=== PATIENT | female | born 1965 | race Caucasian/White ===

== ENCOUNTER 2017-06-18 18:01 | Emergency (ER) | payer OTHER ==
--- NOTE | ~2017-06-18 | EKG ---
PATIENT: JEB RODRIGUEZ UNIT #: [id number] Ventricular Rate: 75 BPM Atrial Rate: 75 BPM P-R Interval: 128 ms QRS Duration: 72 ms Q-T Interval: 398 ms QTC Calculation(Bezet): 444 ms P [place]: 9 degrees Calculated R [place]: -3 degrees Calculated T [place]: 18 degrees Diagnosis Line: Normal sinus rhythm Diagnosis Line: Inferior infarct , age undetermined Diagnosis Line: Abnormal ECG Diagnosis Line: No previous ECGs available Diagnosis Line: Confirmed by VIANNEY SERRANO MD ([id number]) on Diagnosis Line: 06/19/2017 7:35:07 AM INTERPRETING MD: MAGGIE SERRATO
--- NOTE | ~2017-06-18 | CR72 ---
[facility] A Service of [facility] RADIOLOGY TEXT RESULTS PATIENT: JEB RODRIGUEZ LOCATION: SED : 63 UNIT #: [id number] AGE: [address]: Liam Viramontes MD SEX: F ORDER DR: [id number] [address] [address] [id number] E MR#: [id number] Acc #: [id number] NAME: JEB RODRIGUEZ : 1965 SEX: F STUDY DATE/TIME: 06/18/2017 18:21 UNIT: SED ROOM: STUDY DESCRIPTION: CR Chest Single View Portable Attending Physician: Laim Viramontes M.D. Ordering Physician: Jan Salcido M.D. Primary Care Physician: Primary Care Physician No MEDICAL IMAGING REPORT This report is preliminary unless electronic signature is present. EXAM Portable chest HISTORY Chest pain today. FINDINGS A single AP portable view of the chest shows both lungs to be clear. The heart is normal in size. The mediastinal contour is normal. No significant bone abnormalities are seen. IMPRESSION Normal portable chest. Dictated by... Kanu Duncan M.D. THIS IS AN ELECTRONICALLY VERIFIED REPORT Kanu Duncan M.D. at 06/19/2017 11:42 PM DFL/rosalva TD: 06/19/2017 02:08 JOB #: [id number] MEDICAL IMAGING REPORT Page 1 of 1
[~2017-06-18 18:01] MED LIST: BACTRIM DS TABL1 TA1 PO; KEFLEX500 M1 PO; KEFLEX500 MG PO; LORTAB 7.51 TAB 7.5/ PO; NO MEDICATIONS
[2017-06-18] MEDS ORDERED: ALLERGY MED (18:12)
[2017-06-18] MEDS ORDERED: BUSPAR5 M1 (18:12)
[2017-06-18 18:27] LABS: BASOPHIL# 0.1 X10e3 (0-0.3); BASOPHIL% 0.8 % (0-2.5); EOSINOPHIL# 0.6 X10e3 (0-0.7); HEMATOCRIT 40.3 % (35.0-45.0); HEMOGLOBIN 13.9 gm/dL (12.0-16.0); LYMPHOCYTE# 1.9 X10e3 (1.0-3.5); LYMPHOCYTE% 25.1 % (17.0-45.0); MEAN CELL VOLUME 85.5 FL (83-96); MEAN CORPUSCULAR HEMOGLOBIN 29.4 PG (28-34); MEAN CORPUSCULAR HGB CONC 34.4 g/dL (30-36); MEAN PLATELET VOLUME 7.5 FL (6.5-11.5); MONOCYTE# 0.7 X10e3 (0-1.0); MONOCYTE% 8.5 % (3.0-12.0); NEUTROPHIL# 4.5 X10e3 (1.5-7.1); NEUTROPHIL% 57.6 % (40-75); PLATELET COUNT 310 X10e3 (140-420); RED BLOOD COUNT 4.71 X10e (3.90-5.30); RED CELL DISTRIBUTION WIDTH 13.5 % (11.0-15.5); WHITE BLOOD COUNT 7.7 X10e3 (4.0-10.5)
[2017-06-18 18:34] LABS: DIFF IND NO
[2017-06-18 18:37] LABS: POC - CKMB <1.0 ng/mL (0.0-7.9); POC - TROPONIN <0.05 ng/mL (<=0.05)
[2017-06-18 18:45] LABS: ALBUMIN SERUM 4.3 g/dL (3.5-5.0); BILIRUBIN, DIRECT 0.1 mg/dL (0.0-0.2); BILIRUBIN,INDIRECT 0.7 mg/dL (0.0-0.9); BILIRUBIN,TOTAL 0.8 mg/dL (0.2-2.0); BUN/CREATININE RATIO 17.14; CALCIUM SERUM 8.9 mg/dL (8.4-10.2); CREATININE SERUM 0.7 mg/dL (0.6-1.4); GLOM FILT RATE Estimated 98.9 mL/min (>60); POTASSIUM 3.6 mmol/L (3.5-5.1); PROTEIN TOTAL SERUM 7.9 g/dL (6.0-8.3)
[2017-06-18 20:29] LABS: POC - CKMB <1.0 ng/mL (0.0-7.9); POC - TROPONIN <0.05 ng/mL (<=0.05)
[2017-07-07] MEDS ORDERED: INHALER (11:40)
[2017-07-07] MEDS ORDERED: ZYRTEC10 M1 PO (11:40)
== END 2017-06-18 21:06 | disposition home or self-care (01) ==
LOC: SED 18:01
PROVIDERS: Emergency Medicine
DX: R07.89 Other chest pain (principal); R10.13 Epigastric pain; F41.9 Anxiety disorder, unspecified
CPT/HCPCS: 36415; 71010; 80048; 80076; 82553; 83690; 84484; 85025; 86677; 93005; 96374; 99285; J2405

== ENCOUNTER → 2017-06-26 | Outpatient (CLI) | payer OTHER ==
[~2017-06-26] MED LIST changes: +ALLERGY MED; +BUSPAR5 M1; +INHALER; +ZYRTEC10 M1 PO
--- NOTE | ~2017-06-26 | US6 ---
[facility] A Service of [facility] RADIOLOGY TEXT RESULTS PATIENT: JEB RODRIGUEZ LOCATION: [facility] : 63 UNIT #: [id number] AGE: [address]: Devika Berrios APRN SEX: F ORDER DR: [id number] [address] [address] [id number] O MR#: [id number] Acc #: [id number] NAME: JEB RODRIGUEZ : 1965 SEX: F STUDY DATE/TIME: 06/26/2017 7:59 UNIT: SG ROOM: STUDY DESCRIPTION: US Abdominal Limited Attending Physician: Devika Berrios A.P.R.N. Referring Physician: Devika Berrios A.P.R.N. Ordering Physician: Devika Berrios A.P.R.N. Primary Care Physician: Devika Berrios A.P.R.N. MEDICAL IMAGING REPORT This report is preliminary unless electronic signature is present. EXAM Right upper quadrant ultrasound 06/26/2017 INDICATIONS Intermittent right upper quadrant pain for a few weeks and nausea that began 3 days ago. TECHNIQUE Sonographic imaging right upper quadrant was performed. No comparisons FINDINGS The pancreas was mostly obscured by bowel gas and not well visualized or assessed. The liver demonstrates fatty infiltration and measures 18 cm long axis. To the extent visualized, there is no focal liver mass or ascites or intrahepatic ductal dilatation. The right kidney is nonobstructed and measures 10.8 cm long axis. There is reverberation artifact versus a small amount of sludge within an otherwise unremarkable gallbladder. No shadowing stones. No sonographic Denise's sign was described by the technologist. Extrahepatic common bile duct measures 2-3 mm. IMPRESSION 1. Fatty infiltration of the liver. 2. Reverberation artifact versus a small amount of sludge within an otherwise unremarkable gallbladder. 3. Otherwise negative. Dictated by... Jan Enrique M.D. [facility] A Service [facility] RADIOLOGY TEXT RESULTS PATIENT: JEB RODRIGUEZ LOCATION: [facility] : 63 UNIT #: [id number] AGE: [address]: Devika Berrios APRN SEX: F ORDER DR: THIS IS AN ELECTRONICALLY VERIFIED REPORT Jan Enrique M.D. at 06/26/2017 4:09 PM Max TD: 06/26/2017 12:43 JOB #: [id number] MEDICAL IMAGING REPORT Page 1 of 1
== END | disposition home or self-care (01) ==
LOC: SGUS 06-25 15:30
DX: R10.13 Epigastric pain (principal); K76.0 Fatty (change of) liver, not elsewhere classified
CPT/HCPCS: 76705

== ENCOUNTER → 2017-07-03 | Outpatient (CLI) | payer OTHER ==
--- NOTE | ~2017-07-03 | NM22 ---
[facility] A Service of [facility] RADIOLOGY TEXT RESULTS PATIENT: JEB RODRIGUEZ LOCATION: [facility] : 63 UNIT #: [id number] AGE: [address]: Devika Berrios APRN SEX: F ORDER DR: [id number] [facility] [address] [place], [place] [address] [id number] O MR#: [id number] Acc #: [id number] NAME: JEB RODRIGUEZ : 1965 SEX: F STUDY DATE/TIME: 07/03/2017 10:57 UNIT: [facility] ROOM: STUDY DESCRIPTION: GA Hepatobiliary W GB Pharm Attending Physician: Devika Berrios A.P.R.N. Referring Physician: Devika Berrios A.P.R.N. Ordering Physician: Devika Berrios A.P.R.N. Primary Care Physician: Devika Berrios A.P.R.N. MEDICAL IMAGING REPORT This report is preliminary unless electronic signature is present EXAM HIDA scan with Kinevac/CCK, 07/03/2017. HISTORY Epigastric abdominal pain and abnormally elevated liver enzymes, right upper quadrant abdominal pain, symptoms for 3 weeks, nausea, vomiting, loose stools, early satiety, appetite loss. FINDINGS The patient received an intravenous injection of 5.14 mCi of technetium 99m tagged Choletec for hepatobiliary imaging. One hour following the injection of the radiopharmaceutical, the patient received an intravenous injection of 2 mcg of Kinevac. There was homogeneous distribution of the radiotracer throughout the liver. Gallbladder activity was seen by 30 minutes postinjection of the radiopharmaceutical. Following Kinevac injection, the gallbladder ejection fraction was 67.4% (normal is greater than 30%). IMPRESSION Normal HIDA scan with gallbladder ejection fraction of 67.4%. Dictated by... Jorden Loredo M.D. THIS IS AN ELECTRONICALLY VERIFIED REPORT Jorden Loredo M.D. at 07/03/2017 5:55 PM KRT/tmw TD: 07/03/2017 16:33 JOB #: [id number] [facility] A Service of [facility] RADIOLOGY TEXT RESULTS PATIENT: JEB RODRIGUEZ LOCATION: [facility] : 63 UNIT #: [id number] AGE: [address]: Devika Berrios APRN SEX: F ORDER DR: MEDICAL IMAGING REPORT Page 1 of 1 COPY
== END | disposition home or self-care (01) ==
LOC: CNUC 10:23
DX: R10.13 Epigastric pain (principal); R74.8 Abnormal levels of other serum enzymes
CPT/HCPCS: 78227; A9537; J2805

== ENCOUNTER → 2017-07-10 | Day surgery (SDC) | payer OTHER ==
--- NOTE | ~2017-07-10 | OR ---
Unit #: [id number] #: [id number] Patient: JEB RODRIGUEZ [id number] [address] [place], [place] [address] [id number] O MR#: [id number] NAME: JEB RODRIGUEZ ROOM: Date of Procedure: 07/10/2017 Admission Date: 07/10/2017 Surgeon: Lobo Walker III, M.D. : 1965 Attending Physician: Lobo Walker III, M.D. Primary Care Physician: Devika Berrios A.P.R.N. OPERATIVE REPORT PREOPERATIVE DIAGNOSIS Symptomatic cholelithiasis. POSTOPERATIVE DIAGNOSIS Symptomatic cholelithiasis. PROCEDURE PERFORMED Laparoscopic cholecystectomy. HOOKMAN Kevin Thorne M.D. SPECIMENS Gallbladder to pathology. COMPLICATIONS None apparent. ESTIMATED BLOOD LOSS Minimal. INDICATIONS FOR PROCEDURE This is a 52-year-old lady, who has sludge and typical biliary colic. She understands risks and benefits of the procedure. DESCRIPTION OF PROCEDURE After consent was obtained, the patient was brought to the operating room and placed in the supine position. General anesthetic was administered and her abdomen was prepped and draped in standard surgical fashion. I made a 5-mm incision in the right upper quadrant used an Optiview to enter the peritoneal cavity without any difficulty. CO2 pneumoperitoneum was then established. Next, a second 5-mm port was placed in the supraumbilical region. An 11-mm port was placed in the midepigastric region and a third 5-mm port was placed in the right lateral subcostal region. I began by retracting the gallbladder superiorly and laterally. I then dissected out the cystic duct and cystic artery and after these were carefully identified, I placed 2 clips proximally, 1 clip distally along both structures and then they were divided. The gallbladder was then taken off the liver bed using the hook cautery. I then was able to extract the gallbladder through the epigastric port site without any dilatation of the fascia. I had excellent hemostasis and all needle, sponge, and instrument counts were correct x2. I then removed all the Unit #: [id number] #: [id number] Patient: JEB RODRIUGEZ trocars and released the pneumoperitoneum. All the incisions were injected with 0.25% plain Marcaine and I reapproximated the skin edges with interrupted 4-0 Vicryl subcuticular suture. Steri-Strips were then applied. The patient tolerated the procedure without any problems and returned to the recovery room in stable condition. Dictated by... Lobo Walker III, M.D. VCL/mary TD: 07/12/2017 03:12 JOB #: [id number] OPERATIVE REPORT Page 1 of 1 X Lobo Walker III, MD PROCEDURE OPERATIVE NOTE
== END | disposition home or self-care (01) ==
LOC: CSUR 10:15
DX: K81.1 Chronic cholecystitis (principal); J45.909 Unspecified asthma, uncomplicated; K21.9 Gastro-esophageal reflux disease without esophagitis; E78.5 Hyperlipidemia, unspecified; Z79.899 Other long term (current) drug therapy; Z90.49 Acquired absence of other specified parts of digestive tract; Z98.890 Other specified postprocedural states
CPT/HCPCS: 84703; 88304; J0330; J1100; J2250; J2710; J3010